=== PATIENT | female | born 1960 | race Caucasian/White ===

== ENCOUNTER 2024-06-16 09:16 | Day surgery (SDC) | payer OTHER ==
[2024-06-16 09:43] LABS: MPV 7.8 fL (7.6-11.3); Platelets 240 thou/uL (152-406)
[2024-06-16 09:52] LABS: PTT, Activated Partial Thromb 32.9 SECONDS (27.2-37.4); Protime INR 1.06
[2024-06-16 09:57] VITALS: BMI 26.2
[2024-06-16] MEDS ORDERED: HYDROCODONE/APAP 10/325 TAB ONE (10:46)
--- NOTE | 2024-06-16 13:42 | RAD REPORT ---
XR SPINE LUMBAR PUNCTURE CLINICAL INDICATION: OTHER SYMPTOMS AND SIGNS W/ CONGNITIVE FUNCTIONS. TECHNIQUE: The risks (including the risks of bleeding, infection, headache, and need for an epidural blood patch), benefits, and alternatives of the procedure were carefully explained to the patient who wished to proceed. Informed written consent was obtained and a timeout procedure was performed pr ior to beginning the study. The patient was positioned on the fluoroscopy table in an oblique prone position. The skin over the l ower back was prepped and draped in the usual, sterile fashion. Local anesthesia was used for the subcutaneous soft tissues. A lumbar puncture was performed directing a spinal needle into the spinal canal under direct fluoroscopic guidance targeting left L3-4 level, until the return of clear CSF was observed. FINDINGS: CSF appearance: Clear and free-flowing Total CSF volume removed: 13.5 cc. Samples were sent to the lab per the ordering physician's orders. Following completion of the procedure the needle was withdrawn and a band-aid placed over the punctur e site. Postprocedural instructions were given to the patient. Complications: None IMPRESSION: Successful fluoroscopically-guided LP, as above. Total fluoroscopy time was 0:15 minutes.
[2024-06-16 14:10] LABS: CSF Glucose 61 mg/dL (40-70)
[2024-06-16 14:20] VITALS: BP 107/58; TEMP 98.4; O2SAT 97
[2024-06-16 14:26] LABS: Appearance CLEAR (CLEAR); Body Fluid Source CSF; Body Fluid WBC 0 /mm^3; Color of Supernate Not Xanthochromic (Not Xantho); Color of fluid Colorless (COLORLESS); Fluid Total Volume 13 ml; Tube # #2
== END 2024-06-16 13:37 | disposition home or self-care (01) ==
LOC: DS 09:16
PROVIDERS: ATTEND Psychiatry & Neurology Neurology with Special Qualifications in Child Neurology
PROC: 009U3ZX Drainage of Spinal Canal, Percutaneous Approach, Diagnostic (ICD-10-PCS; principal; 2024-06-16)
PROC: B01BZZZ Fluoroscopy of Spinal Cord (ICD-10-PCS; 2024-06-16)
DX: R41.89 Other symptoms and signs involving cognitive functions and awareness (principal); I48.91 Unspecified atrial fibrillation; G60.0 Hereditary motor and sensory neuropathy; R53.82 Chronic fatigue, unspecified; G47.33 Obstructive sleep apnea (adult) (pediatric); I10 Essential (primary) hypertension; G43.909 Migraine, unspecified, not intractable, without status migrainosus; E03.9 Hypothyroidism, unspecified; F32.9 Major depressive disorder, single episode, unspecified
CPT/HCPCS: 36415; 77003; 82542; 82945; 84157; 85049; 85610; 85730; 89050